=== PATIENT | female | born 1985 | race Caucasian/White ===

== ENCOUNTER 2018-03-30 21:01 | Emergency (ER) | payer SELFPAY ==
[2018-03-30 21:20] LABS: Bilirubin Negative (Negative); Clarity Cloudy (Clear); Glucose, Urine (Dipstick) Negative (Negative); Leukocyte Large (Negative); Nitrite Positive (Negative); Protein, Urine (Dipstick) 100 mg/dL (Neg-Trace); Specific Gravity, Urine 1.015 (1.005-1.030); Urobilinogen 0.2 mg/dL (0.2-1.0)
[2018-03-30 21:21] LABS: Blood, Urine Moderate (Negative)
[2018-03-30 21:23] LABS: Bacteria/HPF 2+ HPF (None Seen); Squamous Epithelial 0-3 HPF (0-3)
[2018-03-30] MEDS ORDERED: Sulfameth/Trimethoprim DS 800-160mg TAB ONE (21:27)
== END 2018-03-30 21:37 | disposition home or self-care (01) ==
LOC: BURERS 21:01
DX: N39.0 Urinary tract infection, site not specified (principal); F17.210 Nicotine dependence, cigarettes, uncomplicated
CPT/HCPCS: 81003; 81015; 87077; 87086; 87186; 99283